=== PATIENT | male | born 1990 | race Caucasian/White ===

== ENCOUNTER 2019-02-05 17:00 | Emergency (ER) | payer MEDICAID ==
[2019-02-05 17:00] VITALS: BP_SYST 113
[2019-02-05 18:34] VITALS: BP_SYST 113
== END 2019-02-05 17:45 | disposition home or self-care (01) ==
LOC: SED 17:00
DX: S90.122A Contusion of left lesser toe(s) without damage to nail, initial encounter (principal); W22.03XA Walked into furniture, initial encounter; Y93.89 Activity, other specified; Y92.89 Other specified places as the place of occurrence of the external cause; Y99.8 Other external cause status
CPT/HCPCS: 99283